=== PATIENT | female | born 1980 | race Two or more races ===

== ENCOUNTER → 2023-06-15 | Outpatient (CLI) | payer MEDICAID ==
[2023-06-15 10:01] VITALS: BP 108/68; PULSE 69; RESP 16
== END | disposition home or self-care (01) ==
LOC: XYW 09:05
PROVIDERS: ATTEND Internal Medicine
DX: R07.9 Chest pain, unspecified (principal); R00.2 Palpitations; R20.2 Paresthesia of skin; F43.9 Reaction to severe stress, unspecified
CPT/HCPCS: 93017